=== PATIENT | female | born 1990 | race Caucasian/White ===

== ENCOUNTER 2016-12-09 14:34 | Inpatient (IN) | payer MEDICAID ==
[~2016-12-09] VITALS: Ht 165.1 cm; Wt 72.6 kg
[2016-12-09 14:45] VITALS: BP_SYST 161
[2016-12-09] MEDS ORDERED: DIPHENHYDRAMINE INJ 50 MG/ML VIAL IVP ONE (15:15)
[2016-12-09] MEDS ORDERED: NACL 0.9% 1,000 ML IV ONE ×3 (15:15→21:45)
[2016-12-09] MEDS ORDERED: ONDANSETRON HCL 4 MG/2 ML VIAL IVP ONE ×2 (15:15→16:30)
[2016-12-09] MEDS ORDERED: PANTOPRAZOLE SODIUM 40 MG/VIAL (PROTONIX) IVP ONE ×2 (15:15→21:45)
[2016-12-09 15:48] LABS: BASOPHILS # (AUTO) 0.2 K/uL (0.0-0.2); BASOPHILS % (AUTO) 1.2 % (0.0-2.0); EOSINOPHILS % (AUTO) 0.1 % (0.0-4.0); HEMATOCRIT 39.7 % (36-48); HEMOGLOBIN 12.7 g/dL (12.0-16.0); LYMPHOCYTES # (AUTO) 1.3 K/uL (1.0-5.5); LYMPHOCYTES % (AUTO) 8.1 % (20.5-51.5); MEAN CORPUSCULAR HEMOGLOBIN 27 pg (27-31); MEAN CORPUSCULAR HGB CONC 32 % (32-36); MEAN CORPUSCULAR VOLUME 85 fL (79.0-98.0); MONOCYTES # (AUTO) 0.2 K/uL (0.0-1.0); MONOCYTES % (AUTO) 1.2 % (1.7-9.3); NEUTROPHILS # (AUTO) 14.8 K/uL (1.8-7.7); NEUTROPHILS % (AUTO) 89.4 % (40.0-70.0); PLATELET COUNT (AUTO) 111 K/uL (130-430); RED BLOOD CELL COUNT(AUTO) 4.66 MIL/uL (4.2-6.2); RED CELL DISTRIBUTION WIDTH 13.4 % (9.0-15.0); WHITE BLOOD COUNT (AUTO) 16.5 K/uL (4.8-10.8)
[2016-12-09 16:00] LABS: INR 0.9 (0.8-1.2)
[2016-12-09 16:01] LABS: ANION GAP 7 (5-15); CALCIUM 9.1 mg/dL (8.4-11.0); CHLORIDE 104 mmol/L (98-107); CREATININE 0.66 mg/dL (0.55-1.30); GLUCOSE 256 mg/dL (70-99); POTASSIUM 3.5 mmol/L (3.5-5.1); SODIUM SERUM 138 mmol/L (136-145); UREA NITROGEN, BLOOD 14 mg/dL (8-21)
[2016-12-09 16:10] LABS: GFR AFRICAN AMERICAN 139 mL/min (>90)
[2016-12-09 16:14] LABS: ALANINE AMINOTRANSFERASE 12 U/L (12-78); ASPARTATE AMINOTRANSFERASE 15 U/L (10-37); FREE T4 (FREE THYROXINE) 0.8 ng/dL (0.6-1.6); TOTAL BILIRUBIN 0.3 mg/dL (0.0-1.0); TOTAL PROTEIN, SERUM 8.3 g/dL (6.4-8.3)
[2016-12-09 16:16] LABS: ALCOHOL, BLOOD < 3 mg/dL (<10)
[2016-12-09] MEDS ORDERED: LORazepam 2 MG/ML VIAL (FOR ER USE) IVP ONE (17:00)
[2016-12-09 17:21] LABS: BILIRUBIN,URINE NEGATIVE (NEGATIVE); BLOOD, URINE NEGATIVE (NEGATIVE); CLARITY/URINE CLOUDY (CLEAR); COLOR,URINE YELLOW (YELLOW); GLUCOSE,URINE 3+ (NEGATIVE); KETONES,URINE 2+ (NEGATIVE); LEUKOCYTE ESTERASE ,URINE 1+ (NEGATIVE); NITRITE, URINE NEGATIVE (NEGATIVE); PH,URINE 6.5 (5.0-8.0); PROTEIN URINE TRACE (NEGATIVE); UROBILINOGEN,URINE 0.2 (0.2-1.0)
[2016-12-09 17:40] LABS: BARBITURATE, URINE NEGATIVE (NEG <=200); BENZODIAZEPINE, URINE NEGATIVE (NEG <=150); COCAINE, URINE NEGATIVE (NEG <=150); METHAMPHETAMINES SCREEN,URINE NEGATIVE (NEG <=500); URINE AMPHETAMINE NEGATIVE (NEG <=500); URINE METHADONE NEGATIVE (NEG <=200)
[2016-12-09 17:41] LABS: CANNABINOID, URINE POSITIVE (NEG <=50); OPIATE, URINE NEGATIVE (NEG <=100); PHENCYCLIDINE SCREEN,URINE NEGATIVE (NEG <=25); UR TRICYCLIC ANTIDEPRESSANTS NEGATIVE (NEG <=300); URINE OXYCODONE SCREEN NEGATIVE (NEG <=100); URINE PROPOXYPHENE SCREEN NEGATIVE (NEG <=300)
[2016-12-09 18:02] LABS: ACETONE, SERUM NEGATIVE (NEGATIVE)
[2016-12-09 18:05] LABS: BACTERIA,URINE MANY /HPF (None Seen); MUCUS,URINE None Seen /LPF (None Seen); RBC,URINE 0-3 /HPF (0-3)
[2016-12-09 18:06] LABS: URINE AMORPHOUS URATE 3+ /HPF (None Seen)
[2016-12-09 19:33] LABS: BASOPHILS # (AUTO) 0.2 K/uL (0.0-0.2); BASOPHILS % (AUTO) 1.7 % (0.0-2.0); HEMOGLOBIN 11.7 g/dL (12.0-16.0); LYMPHOCYTES # (AUTO) 1.1 K/uL (1.0-5.5); LYMPHOCYTES % (AUTO) 8.6 % (20.5-51.5); MEAN CORPUSCULAR HEMOGLOBIN 28 pg (27-31); MEAN CORPUSCULAR HGB CONC 33 % (32-36); MEAN CORPUSCULAR VOLUME 85 fL (79.0-98.0); MONOCYTES # (AUTO) 0.2 K/uL (0.0-1.0); MONOCYTES % (AUTO) 1.4 % (1.7-9.3); NEUTROPHILS # (AUTO) 11.5 K/uL (1.8-7.7); NEUTROPHILS % (AUTO) 88.3 % (40.0-70.0); PLATELET COUNT (AUTO) 245 K/uL (130-430); RED BLOOD CELL COUNT(AUTO) 4.26 MIL/uL (4.2-6.2); RED CELL DISTRIBUTION WIDTH 13.5 % (9.0-15.0)
[2016-12-09] MEDS ORDERED: INSU10VI4 SUBCUT (19:37)
[2016-12-09] MEDS ORDERED: INSU100V9 SUBCUT (19:37)
[2016-12-09] MEDS ORDERED: HYDR-1189 PO (19:37)
[2016-12-09] MEDS: NACL 0.9% 1,000 ML IV SCH (21:56)
[2016-12-09] MEDS ORDERED: cefTRIAXone 1 GM IVPB PREMIX 50 ML IV ONE (22:00)
[2016-12-09] MEDS: METOCLOPRAMIDE HCL 10 MG/2 ML VIAL IVP SCH (22:07)
[2016-12-09] MEDS ORDERED: METOCLOPRAMIDE HCL 10 MG/2 ML VIAL ONE (22:10)
[2016-12-09] MEDS ORDERED: PANTOPRAZOLE SODIUM 40 MG/VIAL (PROTONIX) ONE ×2 (22:11→22:13)
[2016-12-09] MEDS: PANTOPRAZOLE SODIUM 40 MG in NS 50 ML IV SCH (22:18)
[2016-12-09 22:20] VITALS: BP_SYST 139
[2016-12-09 23:00] VITALS: BP_SYST 98
[2016-12-09 23:19] LABS: HEMATOCRIT 34.7 % (36-48); HEMOGLOBIN 11.4 g/dL (12.0-16.0)
[2016-12-09 23:27] LABS: CALCIUM 8.4 mg/dL (8.4-11.0); CREATININE 0.81 mg/dL (0.55-1.30)
[2016-12-09] MEDS: INSULIN REGULAR, HUMAN 100 UNITS/ML, 10 ML VIAL (novoLIN R) SUBCUT PRN (23:51)
[2016-12-10] VITALS (15 sets, daily range): BP systolic 11–139
[2016-12-10] MEDS: PANTOPRAZOLE SODIUM 40 MG in NS 50 ML IV SCH ×2 (02:00→14:05)
[2016-12-10] MEDS: INSULIN REGULAR, HUMAN 100 UNITS/ML, 10 ML VIAL (novoLIN R) SUBCUT PRN (02:48)
[2016-12-10] MEDS: NACL 0.9% 1,000 ML IV SCH (04:25)
[2016-12-10] MEDS ORDERED: cefTRIAXone 1 GM IVPB PREMIX 50 ML IV ONE (05:02)
[2016-12-10 06:20] LABS: BASOPHILS % (AUTO) 0.3 % (0.0-2.0); HEMOGLOBIN 9.7 g/dL (12.0-16.0); LYMPHOCYTES # (AUTO) 2.3 K/uL (1.0-5.5); LYMPHOCYTES % (AUTO) 22.6 % (20.5-51.5); MEAN CORPUSCULAR HEMOGLOBIN 27 pg (27-31); MEAN CORPUSCULAR HGB CONC 31 % (32-36); MEAN CORPUSCULAR VOLUME 85 fL (79.0-98.0); MONOCYTES # (AUTO) 0.7 K/uL (0.0-1.0); NEUTROPHILS # (AUTO) 7.2 K/uL (1.8-7.7); NEUTROPHILS % (AUTO) 70.1 % (40.0-70.0); PLATELET COUNT (AUTO) 277 K/uL (130-430); RED BLOOD CELL COUNT(AUTO) 3.65 MIL/uL (4.2-6.2); RED CELL DISTRIBUTION WIDTH 13.5 % (9.0-15.0); WHITE BLOOD COUNT (AUTO) 10.2 K/uL (4.8-10.8)
[2016-12-10 06:24] LABS: PROTHROMBIN TIME 10.4 SECS (9.5-12.5)
[2016-12-10 06:49] LABS: ALBUMIN 3.1 g/dL (3.4-4.8); CALCIUM 7.9 mg/dL (8.4-11.0); CREATININE 0.63 mg/dL (0.55-1.30); POTASSIUM 3.2 mmol/L (3.5-5.1); TOTAL BILIRUBIN 0.6 mg/dL (0.0-1.0); TOTAL PROTEIN, SERUM 6.7 g/dL (6.4-8.3)
[2016-12-10] MEDS: METOCLOPRAMIDE HCL 10 MG/2 ML VIAL IVP SCH ×3 (06:57→17:35)
[2016-12-10] MEDS ORDERED: KCL 20 mEq in D5/0.45NS 1000mL 1,000 ML IV SCH (09:15)
[2016-12-10] MEDS ORDERED: DEXTROSE 50% JECT 50 ML DISP.SYRIN IVP PRN (09:30)
[2016-12-10] MEDS ORDERED: MIDAZOLAM HCL 5 MG/5 ML VIAL ONE (10:17)
[2016-12-10] MEDS ORDERED: MEPERIDINE HCL/PF 100 MG/ML AMP ONE ×2 (10:17→10:18)
[2016-12-10] MEDS ORDERED: DIPHENHYDRAMINE INJ 50 MG/ML VIAL ONE (10:18)
[2016-12-10] MEDS ORDERED: SIMETHICONE 40 MG/0.6 ML ML ONE (10:18)
[2016-12-10] MEDS: KCL 20 mEq in 0.45% NS 1000 mL 1,000 ML IV SCH ×2 (10:55→18:24)
[2016-12-10] MEDS: MIDAZOLAM HCL 5 MG/5 ML VIAL ONE ×4 (11:20→11:27)
[2016-12-10] MEDS ORDERED: ONDANSETRON HCL 4 MG/2 ML VIAL IVP PRN (11:30)
[2016-12-10 12:40] LABS: HEMATOCRIT 28.1 % (36-48); HEMOGLOBIN 9.1 g/dL (12.0-16.0)
[2016-12-10] MEDS: INSULIN ASPART 100 UNITS/ML, 10 ML VIAL (NovoLOG) SUBCUT PRN ×2 (13:04→17:40)
[2016-12-10 18:02] LABS: HEMATOCRIT 31.2 % (36-48); HEMOGLOBIN 10.1 g/dL (12.0-16.0)
[2016-12-10] MEDS ORDERED: cefTRIAXone 1 GM IVPB PREMIX 50 ML IV SCH (21:00)
== END 2016-12-10 19:10 | disposition left against medical advice (07) | DRG 720 ==
LOC: SED 14:34 → SIC 20:59 → SMU 12-10 14:27
PROVIDERS: ADMIT Internal Medicine; ATTEND Internal Medicine
PROC: 0DB38ZX Excision of Lower Esophagus, Via Natural or Artificial Opening Endoscopic, Diagnostic (ICD-10-PCS; principal; 2016-12-10 12:00)
DX: A41.9 Sepsis, unspecified organism (principal); K22.11 Ulcer of esophagus with bleeding; E10.9 Type 1 diabetes mellitus without complications; N39.0 Urinary tract infection, site not specified; D64.9 Anemia, unspecified; F10.10 Alcohol abuse, uncomplicated; K21.0 Gastro-esophageal reflux disease with esophagitis; K29.70 Gastritis, unspecified, without bleeding; F12.10 Cannabis abuse, uncomplicated; K44.9 Diaphragmatic hernia without obstruction or gangrene; Z53.21 Procedure and treatment not carried out due to patient leaving prior to being seen by health care provider; Z87.11 Personal history of peptic ulcer disease; Z88.6 Allergy status to analgesic agent; Z79.4 Long term (current) use of insulin
CPT/HCPCS: 36415; 43239; 71010; 74000-TC; 80048; 80053; 80307; 81000-TC; 82009-TC; 82140-TC; 82150-TC; 82962; 83605; 83690-TC; 83880; 84439; 84484; 85018-TC; 85025; 85610-TC; 85730-TC; 87040-TC; 87081; 87086; 88305; 88313; 93005; 96361; 96374; 96375; 96376; 99285; C9113; G0482; J0696; J1200; J1815; J2060; J2175; J2250; J2405; J2765; J3480; J7030

== ENCOUNTER 2019-12-26 13:27 | Emergency (ER) | payer MEDICAID ==
[~2019-12-26] VITALS: Ht 170.2 cm; Wt 90.7 kg
[~2019-12-26 13:27] MED LIST: HYDR-1189 PO; INSU100V9 SUBCUT; INSU10VI4 SUBCUT
[2019-12-26 13:39] VITALS: BP_SYST 155
--- NOTE | 2019-12-26 13:40 | NUR ---
Placed in room 2 . Placed on electronic device monitor, blood pressure machine and pulse oximeter. To gown for exam. Side rails up. Assumed care.
[2019-12-26] MEDS ORDERED: NACL 0.9% 2,000 ML IV ONE (14:00)
[2019-12-26] MEDS ORDERED: ONDANSETRON HCL 4 MG/2 ML VIAL IVP ONE ×2 (14:00→15:30)
[2019-12-26] MEDS ORDERED: PANTOPRAZOLE SODIUM 40 MG/VIAL (PROTONIX) IVP ONE (14:00)
[2019-12-26] MEDS ORDERED: DIPHENHYDRAMINE INJ 50 MG/ML VIAL IVP ONE ×3 (14:00→20:00)
--- NOTE | 2019-12-26 14:00 | NUR ---
Patient arrived via POV, AAOx4, and ambulatory with steady gait. Patient states she has been vomiting since this AM. Patient states she was drinking last night, and ate pasta late. She began vomiting this AM, and estimates 10-12 times prior to arrival. Patient notes epigastric pain 9/10, and patient is vomiting dark red emesis. Patient has dry mucus membranes and tongue appears sticky. Patient states there is intense heaving with the vomiting. No diarrhea. Patient states no chest pain or shortness of breath.
--- NOTE | 2019-12-26 14:02 | NUR ---
ER at bedside examining patient.
--- NOTE | 2019-12-26 14:10 | NUR ---
Patient given medications to help with the vomiting. Patient tolerated well. Will continue to monitor. Patient on child monitor, and used bedside commode for BM.
[2019-12-26 14:15] LABS: BASOPHILS % (AUTO) 0.5 % (0.0-2.0); EOSINOPHILS % (AUTO) 0.3 % (0.0-4.0); HEMATOCRIT 38.3 % (36-48); HEMOGLOBIN 12.6 g/dL (12.0-16.0); LYMPHOCYTES % (AUTO) 22.1 % (20.5-51.5); MEAN CORPUSCULAR HEMOGLOBIN 27 pg (27-31); MEAN CORPUSCULAR HGB CONC 33 % (32-36); MEAN CORPUSCULAR VOLUME 83 fL (79.0-98.0); MONOCYTES # (AUTO) 0.3 K/uL (0.0-1.0); MONOCYTES % (AUTO) 3.6 % (1.7-9.3); NEUTROPHILS # (AUTO) 6.7 K/uL (1.8-7.7); NEUTROPHILS % (AUTO) 73.5 % (40.0-70.0); PLATELET COUNT (AUTO) 297 K/uL (130-430); RED BLOOD CELL COUNT(AUTO) 4.62 MIL/uL (4.2-6.2); WHITE BLOOD COUNT (AUTO) 9.1 K/uL (4.8-10.8)
[2019-12-26 14:33] LABS: INR 0.9 (0.8-1.2); PROTHROMBIN TIME 9.1 SECS (9.5-12.5)
[2019-12-26 14:43] LABS: ANION GAP 12 (5-15); CALCIUM 9.1 mg/dL (8.4-11.0); CHLORIDE 103 mmol/L (98-107); CREATININE 0.64 mg/dL (0.55-1.30); GLUCOSE 197 mg/dL (70-99); POTASSIUM 3.4 mmol/L (3.5-5.1); SODIUM SERUM 140 mmol/L (136-145); UREA NITROGEN, BLOOD 14 mg/dL (8-21)
[2019-12-26 14:44] LABS: GFR AFRICAN AMERICAN 141 mL/min (>90)
[2019-12-26] MEDS ORDERED: MORPHINE 2 MG/ML INJ. SYRINGE IVP ONE (14:45)
[2019-12-26 14:47] LABS: ALANINE AMINOTRANSFERASE 22 U/L (12-78); ALBUMIN 3.7 g/dL (3.4-4.8); ASPARTATE AMINOTRANSFERASE 17 U/L (10-37); TOTAL BILIRUBIN 0.4 mg/dL (0.0-1.0)
[2019-12-26 14:48] LABS: ALCOHOL, BLOOD < 3 mg/dL (<10)
--- NOTE | 2019-12-26 15:43 | NUR ---
Patient given additional medications to help with vomiting. Will continue to follow up and monitor.
--- NOTE | 2019-12-26 17:44 | NUR ---
Patient refusing NGT as recommended by ED MD.
[2019-12-26] MEDS ORDERED: LORazepam 2 MG/ML VIAL IVP ONE (18:45)
--- NOTE | 2019-12-26 18:50 | NUR ---
Patient requesting more anti-nausea medications.
--- NOTE | 2019-12-26 19:18 | NUR ---
Patient report given to VENTURA Leyva. Lab results are pending for repeat CBC. Possible insurance led transfer.
--- NOTE | 2019-12-26 19:35 | NUR ---
PT IS VOMITING IN EMESIS BAG. VOMIT IS COFFEE COLOR. PT STATES SHE IS STILL EXPERIENCING NAUSEA. MD NOTIFIED.
[2019-12-26 19:43] LABS: BASOPHILS % (AUTO) 0.1 % (0.0-2.0); HEMATOCRIT 39.6 % (36-48); HEMOGLOBIN 12.7 g/dL (12.0-16.0); LYMPHOCYTES % (AUTO) 6.8 % (20.5-51.5); MEAN CORPUSCULAR HEMOGLOBIN 27 pg (27-31); MEAN CORPUSCULAR HGB CONC 32 % (32-36); MEAN CORPUSCULAR VOLUME 84 fL (79.0-98.0); MONOCYTES # (AUTO) 0.3 K/uL (0.0-1.0); MONOCYTES % (AUTO) 2.1 % (1.7-9.3); NEUTROPHILS # (AUTO) 13.2 K/uL (1.8-7.7); PLATELET COUNT (AUTO) 243 K/uL (130-430); RED CELL DISTRIBUTION WIDTH 15.5 % (9.0-15.0); WHITE BLOOD COUNT (AUTO) 14.6 K/uL (4.8-10.8)
[2019-12-26] MEDS ORDERED: HALOPERIDOL LACTATE 5 MG/ML VIAL IVP ONE (20:00)
[2019-12-26] MEDS ORDERED: PROCHLORPERAZINE EDISYLATE 10 MG/2 ML VIAL IVP ONE (20:00)
--- NOTE | 2019-12-26 20:27 | NUR ---
STRIP PRE-HALDOL PRINTED AND PLACED IN PATIENTS CHART.
--- NOTE | 2019-12-26 20:38 | NUR ---
STRIP POST TIERRAL PRINTED AND PLACED IN PATIENTS CHART.
--- NOTE | 2019-12-26 21:05 | NUR ---
PT IS SLEEPING IN BED. VITAL SIGNS STABLE. PT IS NOT VOMITING, BED IN SEMI LEARY POSITION.
--- NOTE | 2019-12-26 21:49 | NUR ---
PT CALLING LORRAINEELIZ[facility] COCHRAN FOR A RIDE HOME.
[2019-12-26 22:10] VITALS: BP_SYST 110
--- NOTE | 2019-12-26 22:10 | NUR ---
Patient given written and verbal discharge instructions and verbalizes understanding. ER MD discussed with patient the results and treatment provided. Patient in stable condition. ID arm band removed. IV catheter removed intact and dressing applied, no active bleeding. Rx of ATIVAN AND ZOFRAN given. Patient educated on pain management and to follow up with PMD. Pain Scale 0/10. Opportunity for questions provided and answered. Medication side effect fact sheet provided.
== END 2019-12-26 22:10 | disposition home or self-care (01) ==
LOC: SED 13:27
DX: K31.84 Gastroparesis (principal); E11.9 Type 2 diabetes mellitus without complications; F12.90 Cannabis use, unspecified, uncomplicated; K92.2 Gastrointestinal hemorrhage, unspecified; Z79.4 Long term (current) use of insulin; Z79.899 Other long term (current) drug therapy
CPT/HCPCS: 36415; 80053; 82962; 83605; 85025; 85610; 96361; 96374; 96375; 96376; 99285; C9113; G0482; J0780; J1200; J1630; J2060; J2270; J2405; J7030